=== PATIENT | male | born 1935 | race Caucasian/White ===

== ENCOUNTER 2018-06-15 12:34 | Inpatient (IN) ==
[2018-06-15] MEDS ORDERED: Tetanus/Diphtheria Toxoid Adult Vaccine Inj 0.5 ML Vial IM ONE (13:06)
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
--- NOTE | 2018-06-15 13:36 | CT ---
EXAM DATE: 06/15/2018 1:21 PM EDT AGE/SEX: 82 years / Male INDICATIONS: Altered mental status. CLINICAL DATA: This is the patient's initial encounter. Patient reports that signs and symptoms have been present for 1 day and indicates a pain score of 0/10. MEDICAL/SURGICAL HISTORY: Dementia. Hypertension. Cardiovascular disease. CABG. RADIATION DOSE: 45.02 CTDI (mGy) COMPARISON: No prior exams available for comparison. TECHNIQUE: CT of the head without contrast. Using automated exposure control and adjustment of the mA and/or kV according to patient size, radiation dose was kept as low as reasonably achievable to ob tain optimal diagnostic quality images. DICOM format image data is available electronically for revi ew and comparison. FINDINGS: Cerebrum: The ventricles are normal for age. No evidence of midline shift, mass lesion, hemorrhage or acute infarction. No extraaxial fluid collections are seen. Posterior Fossa: The cerebellum and brainstem are intact. The 4th ventricle is midline. The cerebe llopontine angle is unremarkable. Extracranial: The visualized portion of the orbits is intact. Skull: The calvaria is intact. No evidence of skull fracture. CONCLUSION: 1. Negative CT Head non contrast. . Electronically signed by: Frannie Nielsen MD 06/15/2018 1:35 PM EDT
[2018-06-15 13:37] LABS: Baso % (Auto) 0.4 % (0.0-2.0); Eos # (Auto) 0.2 th/mm3 (0.0-0.4); Eos % (Auto) 2.4 % (0.0-4.0); Hematocrit 41.5 % (39.0-51.0); Hemoglobin 14.3 gm/dL (13.0-17.0); Lymph # (Auto) 1.1 th/mm3 (1.0-4.8); Lymph % (Auto) 12.1 % (9.0-44.0); Mean Corpuscular HGB Conc 34.4 % (32.0-36.0); Mean Corpuscular Hemoglobin 30.5 pg (27.0-34.0); Mean Corpuscular Volume 88.5 fL (80.0-100.0); Mean Platelet Volume 7.9 fL (7.0-11.0); Mono # (Auto) 0.6 th/mm3 (0.0-0.9); Mono % (Auto) 6.8 % (0.0-8.0); Neut # (Auto) 7.3 th/mm3 (1.8-7.7); Neut % (Auto) 78.3 % (16.0-70.0); Platelet Count 203 th/mm3 (150-450); Red Blood Count 4.68 mil/mm3 (4.50-5.90); Red Cell Distribution Width 13.4 % (11.6-17.2); White Blood Count 9.4 th/mm3 (4.0-11.0)
[2018-06-15 13:46] LABS: Activated Partial Thrombo Time 25.8 sec (24.3-30.1); Prothrombin Time 10.4 sec (9.8-11.6)
[2018-06-15 14:04] LABS: Alanine Aminotransferase 34 U/L (12-78)
[2018-06-15 14:14] LABS: Alkaline Phosphatase 63 U/L (45-117); Total Protein 7.5 g/dL (6.4-8.2)
[2018-06-15 14:18] LABS: Albumin 4.2 g/dL (3.4-5.0); Anion Gap 10 meq/L (5-15); Aspartate Aminotransferase 33 U/L (15-37); Blood Urea Nitrogen 21 mg/dL (7-18); Calcium 8.6 mg/dL (8.5-10.1); Carbon Dioxide 24.5 meq/L (21.0-32.0); Chloride 105 meq/L (98-107); Glomerular Filtration Rate 44 mL/min (>89); Glucose,Random 99 mg/dL (74-106); Potassium 4.2 meq/L (3.5-5.1); Sodium 139 meq/L (136-145)
[2018-06-15 14:51] LABS: Bilirubin,Urine Negative (Negative); Clarity,Urine Clear (Clear); Color,Urine Yellow (Yellw/Straw); Glucose,Urine (UA) Negative (Negative); Hyaline Casts,Urine 1 /lpf (0-3); Leukocyte Esterase,Urine Negative (Negative); Nitrite,Urine Negative (Negative)
[2018-06-15] MEDS ORDERED: amLODIPine 5 MG Tablet PO ONE (17:42)
[2018-06-15] MEDS ORDERED: LORazepam 0.5 MG Tablet PO PRN (19:47)
[2018-06-15] MEDS ORDERED: Acetaminophen 325 MG Tablet PO PRN (19:49)
[2018-06-15] MEDS ORDERED: Aluminum/Magnesium/Simethacone Susp 30 ML UDC PO PRN (19:49)
[2018-06-16] MEDS: levETIRAcetam 500 MG Tablet PO SCH ×3 (08:44→22:51)
[2018-06-16] MEDS ORDERED: amLODIPine 5 MG Tablet PO SCH (09:00)
[2018-06-16] MEDS ORDERED: QUEtiapine 25 MG Tablet PO SCH (09:00)
[2018-06-16] MEDS: Folic Acid 1 MG Tablet PO SCH (09:42)
[2018-06-16] MEDS: Spironolactone 25 MG Tablet PO SCH (09:42)
[2018-06-16] MEDS: Furosemide 20 MG Tablet PO SCH (09:43)
[2018-06-16] MEDS: Isosorbide Mononitrate 20 MG Tablet PO SCH ×2 (09:44→17:21)
[2018-06-16 09:50] LABS: Calcium 9.1 mg/dL (8.5-10.1); Carbon Dioxide 25.5 meq/L (21.0-32.0); Potassium 3.7 meq/L (3.5-5.1)
[2018-06-16 09:55] LABS: Chol/HDL Ratio 2.99 Ratio; HDL Cholesterol 47.7 mg/dL (40.0-60.0)
[2018-06-16 10:48] LABS: Hemoglobin A1c 6.5 % (4.3-6.0)
[2018-06-16] MEDS ORDERED: Haloperidol Inj 5 MG/ML Ampul ONE (14:13)
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
[2018-06-16] MEDS ORDERED: Haloperidol Inj 5 MG/ML Ampul IM ONE (17:30)
[2018-06-16] MEDS: QUEtiapine 25 MG Tablet PO SCH (22:51)
[2018-06-17] MEDS: levETIRAcetam 500 MG Tablet PO SCH ×2 (08:53→21:27)
[2018-06-17] MEDS: amLODIPine 5 MG Tablet PO SCH (08:53)
[2018-06-17] MEDS: Isosorbide Mononitrate 20 MG Tablet PO SCH ×2 (08:53→16:47)
[2018-06-17] MEDS: Folic Acid 1 MG Tablet PO SCH (08:53)
[2018-06-17] MEDS: Spironolactone 25 MG Tablet PO SCH (08:53)
[2018-06-17] MEDS: Furosemide 20 MG Tablet PO SCH (08:53)
[2018-06-17] MEDS: QUEtiapine 25 MG Tablet PO SCH ×2 (08:54→21:27)
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
[2018-06-17] MEDS ORDERED: hydrALAZINE 10 MG Tablet PO PRN (17:16)
--- NOTE | 2018-06-18 08:12 | P.TTN ---
- Patient Problems Problems: 1. Discharge planning 2. Medication compliance 3. Knowledge deficit 4. Lack of coping skills - Progress Toward Goals Provider Present: Dr. Nikhil Barillas Provider Input: Pt arrived yesterday with diagnosis of dementia, he is aggressive at home at night, daughter is concerned, will adjust meds Nurse(s) Present: Mony Nurse Input: Pt is med compliant, no further outbursts, calm and cooperative Psychiatric Counselors Present: Chary Landaverde LCSW, Burke Storm Jr., [facility] Psychiatric Therapist Input: Pt will be discharged to daughter's house Group Spec/RT/OT/SMITH Present: SARAH Herring, Nick Baptiste, OT Group Spec/RT/OT/SMITH Input: Pt has not participated in groups, will continue to encourage - Discharge Plan DC to daughter's house - Documentation Teaching Recipient: Patient
[2018-06-18] MEDS: Furosemide 20 MG Tablet PO SCH (08:43)
[2018-06-18] MEDS: QUEtiapine 25 MG Tablet PO SCH ×2 (08:45→21:04)
[2018-06-18] MEDS: Folic Acid 1 MG Tablet PO SCH (08:45)
[2018-06-18] MEDS: Spironolactone 25 MG Tablet PO SCH (08:45)
[2018-06-18] MEDS: Isosorbide Mononitrate 20 MG Tablet PO SCH ×2 (08:45→16:59)
[2018-06-18] MEDS: amLODIPine 5 MG Tablet PO SCH (08:45)
[2018-06-18] MEDS: levETIRAcetam 500 MG Tablet PO SCH ×2 (08:45→21:04)
--- NOTE | 2018-06-18 12:10 | P.PNPSY ---
Subjective Remarks: Patient seen for follow, chart reviewed. Discussion nursing staff reported the patient pleasant, cooperative, compliant with medications. Patient was found sitting in day room noted become cooperative. Patient states he is feeling "better" stating feeling less sad as he reports feeling down due to being in the hospital. He states that his mood has been better, sleeping well, eating and drinking has improved, no difficulty bowel movement. Patient reports having had a pleasant visit with his yesterday and looking forward for possible discharge tomorrow. Patient was served legal papers for civil court regarding his firearms. Review of Systems All other systems reviewed negative except as stated in HPI Mental Status Examination Appearance: Appropriate Consciousness: Alert Orientation: Person, Place ([place]) Motor Activity: Normal gait Speech: Unremarkable Language: Adequate Fund of Knowledge: Inadequate Attention and Concentration: Easily distracted Memory: Impaired Mood: Good Affect: Appropriate Thought Process & Associations: Other ([place]) Thought Content: Appropriate Hallucination Type: None Delusion Type: Paranoid (Lessening) Suicidal Ideation: No Suicidal Plan: No Suicidal Intention: No Homicidal Ideation: No Homicidal Plan: No Homicidal Intention: No Insight: Poor Judgment: Poor Assessment and Plan - Assessment (1) Dementia with behavioral disturbance Code(s): F03.91 - Unspecified dementia with behavioral disturbance Status: Acute - Plan Plan: Patient this time compliant with treatment, no behavioral disturbances, no episodes of agitation. Patient has been pleasant and cooperative. Patient denying any thoughts of self-harm or harm to others reports getting along with his daughter and planning to be discharged back to his tomorrow. Patient aware of civil court regarding his firearms scheduled for tomorrow afternoon. We will continue current treatment. We will continue to monitor mood and behavior. Patient continues with adequate behavioral control patient like for discharge tomorrow morning. Justification for Continued Inpatient Stay: At risk of further decompensation a lower level of care. (1) Dementia with behavioral disturbance Qualifiers: Dementia type: Alzheimer's disease Alzheimer's disease onset: unspecified onset Qualified Code(s): G30.9 - Alzheimer's disease, unspecified; F02.81 - Dementia in other diseases classified elsewhere with behavioral disturbance
[2018-06-19 05:44] VITALS: BP 149/65; PULSE 56; RESP 16; TEMP 97.5; O2SAT 94
[2018-06-19] MEDS: levETIRAcetam 500 MG Tablet PO SCH (08:39)
[2018-06-19] MEDS: Folic Acid 1 MG Tablet PO SCH (08:39)
[2018-06-19] MEDS: QUEtiapine 25 MG Tablet PO SCH (08:40)
[2018-06-19] MEDS: amLODIPine 5 MG Tablet PO SCH (08:40)
[2018-06-19] MEDS: Furosemide 20 MG Tablet PO SCH (08:41)
[2018-06-19] MEDS: Spironolactone 25 MG Tablet PO SCH (08:41)
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
== END 2018-06-19 10:15 | disposition home or self-care (01) ==
LOC: NEPE 12:34 → NEDA 19:39 → H250 20:21
PROVIDERS: ADMIT Student in an Organized Health Care Education/Training Program; ATTEND Student in an Organized Health Care Education/Training Program